=== PATIENT | female | born 1950 | race Caucasian/White ===

== ENCOUNTER 2023-06-08 07:42 | Emergency (ER) | payer MEDICARE, OTHER, SELFPAY ==
[2023-06-08 07:51] VITALS: BP 141/56
--- NOTE | 2023-06-08 09:11 | ED.MUSCINJ ---
HPI-Injury
General
Chief Complaint: Extremity Pain (non-traumatic)
Source: patient
Exam Limitations: none
Time Seen by Provider: 06/08/23 09:08
Nursing documentation reviewed up to this point in time: agreed with
Travel History
Have you had any contact with someone who has COVID-19?: Unable to Answer
Do you have any symptoms of coronavirus? Fever > 100 degrees, chills, cough, shortness of breath, sore throat, loss of taste or smell, muscle aches, or headache?: No
History of Present Illness-Injury
Initial Injury comments:
72-year-old female with history of COPD, A-fib, HTN, HLD, GERD, IDDM with insulin pump, right TKR chronic low back pain presents stating she had epidural [address] Galarza at [facility] for right low back pain and sciatica. 2 days later she
developed right hip pain that has become much worse in the past 3 days. This a.m. she was screaming in R hip and buttock pain, could not lift her right leg, pain 10/10 w weight bearing and difficulty lifting her leg due to pain
Denies loss of bowel or bladder control, saddle numbness. Could not lift the right leg due to pain this a.m. and felt she had to drag it.
She has a follow-up appointment with him in 3 days.
Past History
Past History
ED Past Medical History: Arrthythmia (afib), COPD, GERD, HTN, Hypercholesterolemia and IDDM
ED Past Surgical History: Orthopedic and Tonsilectomy
Social History
Tobacco: Former smoker
Alcohol: Occasional
Personal: Single
Living: with family
Review of Systems
Review of Systems
Allergies reviewed?: Yes
All Other Systems: ROS reviewed and negative except as documented in HPI and ROS
Constitutional: Denies fever
Cardiac: Denies chest pain
ABD/GI: Denies abdominal pain or nausea
: Denies dysuria, incontinence or difficulty voiding
Musculoskeletal: Reports back pain and other (right hip pain)
Skin: Reports no symptoms
Neurological: Denies weakness or numbness
Phy Exam
Physical Exam
Physical Exam:
GENERAL: No acute distress. A&Ox3.
CONSTITUTIONAL: Afebrile.
RESPIRATORY: Regular respirations, nonlabored, lungs clear.
CARDIOVASCULAR: Regular rate and rhythm, no murmurs, no rubs.
GI: Soft, nontender, normal BS
MUSCULOSKELETAL: Tender right mid buttock and about the right hip. Pt with significant limp, too painful right hip area to weight bear right leg. Standing, cannot bend knee and lift leg due to pain. Supine, unable to lift right leg due to hip pain.
Well perfused.
SKIN: Warm, dry, pink
PSYCH: Normal mood and affect. Well kept, interactive and appropriate
NEUROLOGIC: Awake, alert and oriented. No focal neurological deficits
Injury Course
Orders/Labs/Results
Orders:
Orders
06/08/23 09:46
HYDROmorphone [Dilaudid] 1 mg IM NOW STA
Hip, Right 2-3 Views [CR Hip - RT w/wo Pel 2-3 Vw*] Urgent
Comment: 2 weeks s/p lower back epidural
Reason For Exam: pain unable to lift leg
Include a pelvis x-ray?: Yes
06/08/23 11:15
Dexamethasone [Decadron] 10 mg PO NOW STA
MDM/Problems Addressed
Differential Diagnosis Includes:
Acute exacerbation of her chronic low back pain, right hip arthritis aggravation, sciatica
MDM/Problems Addressed:
72-year-old female with history of COPD, A-fib, HTN, HLD, GERD, IDDM with insulin pump, right TKR chronic low back pain presents stating she had epidural [address] Galarza at [facility] for right low back pain and sciatica. 2 days later she
developed right hip pain that has become much worse in the past 3 days. This a.m. she was screaming in R hip an d buttock pain, could not lift her right leg, pain 10/10 w weight bearing.
Denies loss of bowel or bladder control, saddle numbness. Could not lift the right leg due to pain this a.m. and felt she had to drag it.
She had a right knee replacement 01/2023 at [facility], on 04/20/2023 she was reaching for something in her car and felt a pain in the right hip and buttock area. She has been taking her Vicodin but that did not help. She has developed pressure
in both her legs with walking, she had an x-ray of the LS spine, she went to physical therapy with intermittent relief of her pain but still had pain intermittently so she had an MRI 05/21/23 showing according to her, severe arthritis, pinched nerve
and DJD multilevel. She went back to Dr. Elizabeth and had an epidural 2 weeks ago. She has a follow-up appointment with him in 3 days.
Afebrile
Ambulating but with pain
06/08/23 1100 AM
Xray right hip: Radiology report reviewed: Mild OA both hips, R>L
Much relief of pain after Dilaudid and Decadron, can now lift her leg and ambulate with minimal pain.
She is aware she must check her blood sugars more frequently after Decadron as she has used steroids in the past
Is comfortable going home, will continue Vicodin, f/u with her ortho doctor in 3 days as schedules.
*Critical Care Note
Total Time (30-74mins, 75-104mins- exclusive of procedures): Not Applicable
ED Attending Note
-
Portions of this chart may have been created with voice recognition software.� Occasional wrong word or��sound alike� substitutions may have occurred due to the inherent limitations of voice recognition software.
Discharge Plan
Departure
Patient Disposition: Home (Routine Discharge)
Date of Disposition: 06/08/23
Time of Disposition: 11:33
Patient with high blood pressure during this ER visit?: No
Condition: Good
Discharge Problem:
Acute pain of right hip
Instructions: Osteoarthritis (DC), Hip Pain
Prescriptions:
No Action
atorvastatin 10 mg Tablet
10 mg PO DAILY
lisinopril 20 mg Tablet
20 mg PO BID
amlodipine 5 mg Tablet
5 mg PO DAILY
hydrocodone-acetaminophen 7.5-325 mg Tablet
1 tab PO Q6H
omeprazole 20 mg Capsule,Delayed Release(Dr/Ec)
20 mg PO DAILY
insulin lispro 100 unit/mL Insulin Pen
1 sliding scale dose SC DIRECTED
escitalopram oxalate 10 mg Tablet
10 mg PO DAILY
insulin aspart U-100 100 unit/mL (3 mL) Insulin Pen
1 sliding scale dose SC DIRECTED
hydrochlorothiazide 12.5 mg Tablet
12.5 mg PO DAILY
levothyroxine 50 mcg Capsule
50 mcg PO DAILY
Referrals:
[facility] [Other] - Keep scheduled appt
Aiden Suero MD [Family Provider] -
Activity Restrictions/Additional Instructions:
As we discussed, you were given Decadron 10 mg, a steroid here today. It may take 12 to 24 hours to kick in but they can last for up to 3 days. Check your blood sugars at least every 4 hours in the next 3 days and cover yourself with insulin as
you typically do when your blood sugars are higher.
Keep your appointment Friday with your orthopedic doctor.
You do have some degenerative changes in the hip joints. Hopefully the hip pain will resolve as your back pain improves.
Interventions
Interventions:
*Risk Screen - Suicide Last Done: 06/08/23 07:51
*General Assessment Last Done: 06/08/23 11:42
*Neglect/Abuse Screening Last Done: 06/08/23 07:51
ED- Fall Risk Assessment Last Done: 06/08/23 11:42
*ED COVID-19 Vaccine History Last Done: 06/08/23 07:51
*Nursing Disposition Last Done: 06/08/23 11:59
ED-Skin Assessment Last Done: 06/08/23 09:04
ED-Peripheral Vascular Assessment Last Done: 06/08/23 11:42
ED-Musculoskeletal Assessment Last Done: 06/08/23 09:04
Discharge Date and Time
Discharge Date/Time: 06/08/23 11:59
[2023-06-08] MEDS: DILAUDID 1 MG IM (10:07)
[2023-06-08] MEDS: DECADRON 10 MG PO (11:31)
== END 2023-06-08 11:59 | disposition home or self-care (01) ==
LOC: EMR 07:42
PROVIDERS: EMERGENCY PHYSICIAN Emergency Medicine; FAMILY PHYSICIAN Internal Medicine
DX: M25.551 Pain in right hip (principal); J44.9 Chronic obstructive pulmonary disease, unspecified; I48.91 Unspecified atrial fibrillation; I10 Essential (primary) hypertension; E78.00 Pure hypercholesterolemia, unspecified; K21.9 Gastro-esophageal reflux disease without esophagitis; E11.9 Type 2 diabetes mellitus without complications; G89.29 Other chronic pain
CPT/HCPCS: 99283; 96372; 73502